=== PATIENT | female | born 1995 | race Caucasian/White ===

== ENCOUNTER 2019-04-17 13:15 | Emergency (ER) | payer OTHER, SELFPAY ==
[2019-04-17 13:18] VITALS: BP 130/101; PULSE 100; RESP 20; TEMP 36.7; O2SAT 99
--- NOTE | 2019-04-17 13:29 | DI.CT_ITS ---
SYMPTOMS/DIAGNOSIS: RT HEADACHE CT BRAIN: A noncontrast examination was performed. There are no priors for comparison. The ventricular system is normal in appearance. There is no evidence of an intracranial mass lesion. There is no evidence of a subdural or epidural hematoma. No focal areas of decreased attenuation are seen. CONCLUSION: Normal CT brain. The findings were discussed with the emergency department on the date of the examination.
--- NOTE | 2019-04-17 13:35 | W.ED.GENAD ---
Discharge Plan Disposition Patient Disposition: HOME Condition: Improving Discharge Details Chief Complaint: Headache Clinical Impression: Migraine Primary Care Provider: Jeffry Escobedo ED Provider: Luke Tolentino Home Meds and New Rx's Prescriptions: Continued Ortho Evra 1 PATCH patch weekly 1 patch Topical DIRECTED RF: 0 Discharge Instructions Instructions: Migraine Headache (ED) Additional Instructions: Home to rest today. Small, frequent sips of fluids to maintain hydration. Return if you have recurrent headache, or any other acute concerns Medical Decision Making 25-year-old female presents from home with onset of headache this morning. Describes as right-sided, constant, associated with left-sided tingling. Her neurologic exam is unremarkable. She is slightly hypertensive and with a pulse in the 100s on triage. Differential diagnosis includes hemiplegic migraine, atypical migraine, must exclude intracranial mass or hemorrhage. Patient had IV access established, given fluids, parenteral medications, referred for screening laboratories and CT scan of the head. Diagnostic studies are unremarkable including negative imaging. Following medications, patient is improved without residual headache and no residual complaints of numbness or tingling. She is stable and improved. Consistent with migraine type headache. Will discharge to home. Lab Data Lab results reviewed: Yes I reviewed the patient's lab results. Laboratory Results - last 24 hr 04/17/19 04/17/19 13:40 13:40 WBC 6.63 RBC 4.53 Hgb 13.3 Hct 38.9 MCV 85.9 MCH 29.4 MCHC 34.2 RDW 12.1 Plt Count 274 MPV 10.6 Immature Gran % 0.2 Neutrophils % 47.8 Lymphocytes % 40.0 Monocytes % 11.5 Eosinophils % 0.3 Basophils % 0.2 Absolute Neutrophils 3.18 Absolute Lymphocytes 2.65 Absolute Monocytes 0.76 H Absolute Eosinophils 0.02 Absolute Basophils 0.01 Sodium 139 Potassium 3.7 Chloride 102 Carbon Dioxide 26.7 Anion Gap 10.3 BUN 11 Creatinine 0.62 Estimated GFR/1.73 m2 >= 60.00 Glucose 112 H Calcium 8.8 Total Bilirubin 0.3 AST 20 ALT 24 Alkaline Phosphatase 92 Total Protein 7.8 Albumin 3.8 HPI General Mode of arrival: ambulatory. Date/Time Provider Initiated Documentation: 04/17/19 13:17. Limitations to Documentation: no limitations. Information obtained by: patient. History of Present Illness 24 year old F presents to the emergency department with the chief complaint of Headache, right-sided, left side numbness, described as moderate, Quality is described as dull and constant, and is localized to the head and right. Patient reports no radiation. Patient started experiencing this hour(s) and it has been constant. No relieving factors improve symptom(s), No exacerbating factors reported . Patient notes denies fever/chills, loss of appetite and nausea/vomiting. Patient did receive the following treatments prior to arrival, none Related Data Home Medications Medication Instructions Recorded Confirmed Ortho Evra 1 patch TOPICAL DIRECTED 04/09/17 04/17/19 Allergies Allergy/AdvReac Type Severity Reaction Status Date / Time walnuts AdvReac Intermediate tongue and Uncoded 04/17/19 13:22 throat itchy General Stated Complaint: Headache ELEUTERIO: 2 Review of Systems Review of Systems 6 systems reviewed and otherwise negative. No fall or injury. No recent illness. [facility] Social History Smoking/Tobacco Use Status: Never Alcohol Intake: current Alcohol Intake frequency: a few times a month Drug use: Never Substance use type: does not use Do you feel safe at home: Yes Do you feel safe in your relationship?: Yes Exam Narrative Exam Narrative: GEN: awake, alert, oriented 3. Pleasant, well groomed, interactive. HEAD: Normocephalic, atraumatic ENT: Mucous membranes moist, oropharynx unremarkable, External ear exam unremarkable EYES: PERRL, EOMI NECK: Full ROM, no NAINA, no menigismus CHEST/RESP: Nontender, clear to auscultation bilateral, no wheeze/rhonchi/rales CARDIOVASCULAR: RRR, no murmur, rub kathrine. 2+ Rad pulse bilateral ABDOMEN: Soft, nontender, no mass. +Bowel sounds EXT: Full ROM, no edema, no rash Neuro: Grossly normal neurologic exam, conversant, interactive. Cranial nerves II through XII intact Psych: Speech fluent, thoughts congruent, affect normal Course Vital Signs Temperature 36.7 C 04/17/19 13:18 Pulse 100 H 04/17/19 13:18 Respiratory Rate 20 04/17/19 13:18 Blood Pressure 130/101 H 04/17/19 13:18 Pulse Oximetry 99 04/17/19 13:18 Temperature 36.7 C 04/17/19 13:18 Temperature Source Skin 04/17/19 13:18 Pulse 100 H 04/17/19 13:18 Respiratory Rate 20 04/17/19 13:18 Respiratory Effort Non-Labored 04/17/19 13:22 Blood Pressure 130/101 H 04/17/19 13:18 Blood Pressure Position Sitting 04/17/19 13:18 Pulse Oximetry 99 04/17/19 13:18 Oxygen Delivery Method Room Air 04/17/19 13:18 Oxygen Flow Rate 0 04/17/19 13:18 Pain Level 8 04/17/19 13:18 Lab/Test Results Lab/Test Results: POC Urine Test Start: 04/17/19 13:33 Freq: Status: Complete Protocol: Document 04/17/19 13:33 (Rec: 04/17/19 13:33 MR [id number]) Test(Urine)-POC POC- Test(urine) Negative POC- Test(urine) Negative
[2019-04-17 13:48] LABS: Abs Immature Grans 0.01 k/cumm (0.0-0.09); Absolute Basophil Count 0.01 k/cumm (0.0-0.2); Absolute Eosinophil Count 0.02 k/cumm (0.0-0.7); Absolute Lymphocyte Count 2.65 k/cumm (1.2-3.4); Absolute Monocyte Count 0.76 k/cumm (0.11-0.7); Absolute Neutrophil Count 3.18 k/cumm (1.2-6.7); Basophils % 0.2; Eosinophils % 0.3; HCT 38.9 % (36.0-46.0); HGB 13.3 g/dL (12.0-15.5); Immature Grans % 0.2; Mean Corp. HGB Concentration 34.2 g/dL (32.0-36.0); Mean Corpuscular Hemoglobin 29.4 pg (27.0-33.0); Mean Corpuscular Volume 85.9 fL (80-95); Mean Platelet Volume 10.6 fL (8.0-11.0); Monocytes % 11.5; Neutrophils % 47.8; Platelet Count 274 x1000/uL (130-400); RBC 4.53 m/cumm (4.00-5.20); RBC Distribution Width 12.1 % (11.7-14.6); White Blood Cell Count 6.63 k/cumm (4.4-10.8)
[2019-04-17] MEDS: Dexamethasone 10 MG/ML VIAL 8 MG IVP (13:52)
[2019-04-17] MEDS: Normal Saline 1,000 ML 1000 ML IV (13:53)
[2019-04-17] MEDS: Ondansetron 4 MG/2 ML VIAL IVP (13:53)
[2019-04-17] MEDS: Ketorolac 30 MG/ML VIAL IVP (13:53)
[2019-04-17 14:01] LABS: ALT 24 U/L (14-59); AST 20 U/L (15-37); Albumin 3.8 g/dL (3.4-5.0); Alkaline Phosphatase 92 U/L (46-116); Anion Gap 10.3 mmol/L (3-11); BUN 11 mg/dL (7-18); Bilirubin, Total 0.3 mg/dL (0.2-1.0); CO2 26.7 mmol/L (21.0-32.0); CREATININE 0.62 mg/dL (0.55-1.02); Calcium 8.8 mg/dL (8.5-10.1); Chloride 102 mmol/L (98-107); Glucose 112 mg/dL (70-100); Potassium 3.7 mmol/L (3.5-5.1); Sodium 139 mmol/L (136-145); Total Protein 7.8 g/dL (6.4-8.2)
[2019-04-17 14:55] VITALS: BP 118/82; PULSE 86; RESP 16; TEMP 36.6; O2SAT 86
== END 2019-04-17 15:00 | disposition home or self-care (01) ==
PROVIDERS: Emergency Provider Emergency Medicine; PCP Pediatrics
DX: G43.909 Migraine, unspecified, not intractable, without status migrainosus (principal); R20.2 Paresthesia of skin; R03.0 Elevated blood-pressure reading, without diagnosis of hypertension
CPT/HCPCS: 36415; 80053; 81025; 96361; 96374; 96375; 99284; 70450; 85025; J1100; J1885; J2405